=== PATIENT | male | born 2000 | race Two or more races ===

== ENCOUNTER 2022-03-22 21:16 | Emergency (ER) | payer OTHER, SELFPAY ==
[2022-03-22] MEDS ORDERED: Ketorolac Tromethamine 30 MG/ML VIAL ONE (21:36)
[2022-03-22] MEDS ORDERED: Lidocaine 1% w/Epinephrine 1:100K 20 ML VIAL ONE (21:36)
[2022-03-22] MEDS ORDERED: Boostrix 0.5 ML (Tdap) VIAL ONE (21:36)
[2022-03-22] MEDS ORDERED: Bacitracin 1 PK ONE (23:08)
== END 2022-03-22 23:11 | disposition home or self-care (01) ==
LOC: ERS 21:16
DX: S81.812A Laceration without foreign body, left lower leg, initial encounter (principal); S60.221A Contusion of right hand, initial encounter; V28.0XXA Motorcycle driver injured in noncollision transport accident in nontraffic accident, initial encounter; Y93.39 Activity, other involving climbing, rappelling and jumping off; Y92.524 Gas station as the place of occurrence of the external cause; Z23 Encounter for immunization
CPT/HCPCS: 12002; 90471; 90715; 96372; J1885